=== PATIENT | male | born 1975 | race Caucasian/White ===

== ENCOUNTER → 2020-08-24 14:17 | Outpatient (CLI) | payer OTHER, SELFPAY ==
--- NOTE | ~2020-08-24 | US_ITS ---
EXAMINATION: US soft tissue groin RT EXAM DATE: 08/24/2020 14:39 INDICATION: Right inguinal pain, prior hernia repair. TECHNIQUE: Multiple grayscale and Doppler images of the symptomatic right inguinal region. were obtai maggie (by a technologist who performed the scan) and subsequently reviewed. There is no prior study fo r comparison. FINDINGS: Scanning in symptomatic right inguinal region demonstrates several small lymph nodes with fatty toni, probably reactive. No evidence of hernia recurrence. No subcutaneous or muscular abnormality identif ied. IMPRESSION: Unremarkable right inguinal ultrasound exam. Reviewed, dictated and finalized at location [facility]. CHAIR
== END ==
PROVIDERS: PCP Student in an Organized Health Care Education/Training Program; Visit Provider Student in an Organized Health Care Education/Training Program
DX: R10.31 Right lower quadrant pain (principal); Z98.890 Other specified postprocedural states; Z87.19 Personal history of other diseases of the digestive system
CPT/HCPCS: 76882

== ENCOUNTER 2024-06-03 08:48 | Outpatient (CLI) | payer OTHER, SELFPAY ==
--- NOTE | ~2024-06-03 | CT_ITS ---
CT of the Abdomen and Pelvis: Indication: Abdominal pain Technique: 2.5 mm axial scans were obtained through the abdomen and pelvis following intravenous adm inistration of 100 cc of Omnipaque 350. Dose reduction technique was used on this scan by utilizing a utomated exposure control and iterative reconstruction technique. The dose-length product (DLP) was 1 050.07 mGy-cm. Findings: Scans through the lung bases are unremarkable. The liver, spleen, pancreas, gallbladder, adrenals and kidneys are within normal limits. No evidence of aortic aneurysm. No lymphadenopathy. No bowel obstruction or bowel wall thickening. There is no evidence to suggest acute appendicitis. Images through the pelvis were performed. Urinary bladder unremarkable. No pelvic mass seen. No ascit es. Impression: No significant abnormalities seen. Reviewed, dictated and finalized at [facility]. TICE MANAGER Impression: No significant abnormalities seen.
== END 2024-06-03 08:49 | disposition home or self-care (01) ==
PROVIDERS: PCP Student in an Organized Health Care Education/Training Program; Visit Provider Student in an Organized Health Care Education/Training Program
DX: R10.9 Unspecified abdominal pain (principal)
CPT/HCPCS: 74177; Q9967